=== PATIENT | male | born 1980 | race American Indian/Alaskan Native ===

== ENCOUNTER 2021-01-28 13:43 | Emergency (ER) | payer OTHER ==
[2021-01-28 13:51] VITALS: BP 152/99
[2021-01-28] MEDS ORDERED: LIDOCAINE-MPF (1%) 10 MG/1 ML VIAL 5 ML INFILTRATI ONE (15:02)
--- NOTE | 2021-01-28 15:40 | Emergency Department Report ---
Abscess Boil HPI - HPI Chief Complaint: Skin/Abscess/Foreign Body Stated Complaint: LT THUMB Time Seen by Provider: 01/28/21 15:02 Duration: 1 Week Location: Upper Extremity (Left thumb) History: Yes Pain, Yes Purulent Drainage, No Fever, No Numbness, No Foreign Body, No Previous History, No Insect Bite HPI: 40-year-old -Russian male presents to the emergency room for left thumb pain and swelling and infection x1 week. Patient states that it started to drain some. He reports that he got his nails done at a new nail salon. Patient denies any fever or chills no swelling of the hand just around the cuticle. Has a past medical history of HIV is currently on antiretroviral medication and reports he is undetectable. Home Medications: Previous Rx's Medication Instructions Recorded Last Taken Type Abacavir/Dolutegravir/Lamivudi 1 each PO DAILY #30 tablet 11/17/18 Unknown Rx [Triumeq Tablet] Sulfamethoxazole/Trimethoprim 1 each PO BID #14 tablet 11/17/18 Unknown Rx [Bactrim DS TAB] cephALEXin [Keflex] 500 mg PO Q12HR 7 Days #14 cap 01/28/21 Unknown Rx Allergies/Adverse Reactions: Allergies Allergy/AdvReac Type Severity Reaction Status Date / Time No Known Allergies Allergy Verified 01/28/21 13:48 ED Review of Systems ROS: Stated complaint: LT THUMB Other details as noted in HPI Comment: All other systems reviewed and negative ED Past Medical Hx - Past Medical History Hx HIV: Yes - Social History Smoking Status: Never Smoker Substance Use Type: None - Medications Home Medications: Home Medications Medication Instructions Recorded Confirmed Last Taken Type Abacavir/Dolutegravir/Lamivudi 1 each PO DAILY #30 tablet 11/17/18 Unknown Rx [Triumeq Tablet] Sulfamethoxazole/Trimethoprim 1 each PO BID #14 tablet 11/17/18 Unknown Rx [Bactrim DS TAB] cephALEXin [Keflex] 500 mg PO Q12HR 7 Days #14 cap 01/28/21 Unknown Rx ED Abscess Boil Physical Exam - Exam General: Vital signs noted. No distress. Alert and acting appropriately. Size: 1 cm Exam: Yes Tenderness, Yes Fluctuance, Yes Surrounding Cellulites/Erythema, Yes Normal Neurologic Exam, Yes Normal Circulation, No Lymphangitis, No Crepitation, No Heart Murmur I & D Note - I & D Note I & D Note: I & D Note: Under sterile field, I used Betadine to cleanse the area. I then used 2% lidocaine plain with 25-gauge 5/8 needle to inject area for anesthetic purposes. Total volume injected 3 mL. I then used an 11 blade to make a 1 cm incision. No discharge was healed. I then used sterile 0.9% normal saline flush to flush the wound with total volume of 15 mL used. . A sterile finger dressing has been applied. Patient tolerated the procedure well with no signs of distress noted. ED Course Vital Signs 01/28/21 13:49 Temperature 98.3 F Pulse Rate 95 H Respiratory 15 Rate Blood Pressure 152/99 O2 Sat by Pulse 95 Oximetry Critical care attestation.: If time is entered above; I have spent that time in minutes in the direct care of this critically ill patient, excluding procedure time. ED Medical Decision Making - Medical Decision Making 40-year-old -Russian male presents to the emergency room for left thumb pain and swelling and infection x1 week. Patient states that it started to drain some. He reports that he got his nails done at a new nail salon. Patient denies any fever or chills no swelling of the hand just around the cuticle. Has a past medical history of HIV is currently on antiretroviral medication and reports he is undetectable. Incision and drain was completed with no discharge healing. Discussed with patient I will place him on antibiotics such as Keflex complete increase fluid intake Tylenol or ibuprofen for pain management. ED Disposition Clinical Impression: Paronychia Disposition: DC-01 TO HOME OR SELFCARE Is pt being admited?: No Does the pt Need Aspirin: No Condition: Stable Instructions: Paronychia, [id number] Additional Instructions: Complete antibiotics as prescribed. Increase your fluid intake. Tylenol or ibuprofen as needed for pain management. Keep dressing clean and dry Prescriptions: cephALEXin [Keflex] 500 mg PO Q12HR 7 Days #14 cap Referrals: PRIMARY CARE, [Primary Care Provider] - 3-5 Days Forms: Work/School Release Form(ED)
== END 2021-01-28 16:03 | disposition home or self-care (01) ==
LOC: ED 13:43
DX: L03.012 Cellulitis of left finger (principal); Z79.899 Other long term (current) drug therapy; Z21 Asymptomatic human immunodeficiency virus [HIV] infection status
CPT/HCPCS: 99282